=== PATIENT | female | born 1940 | race Caucasian/White ===

== ENCOUNTER 2017-04-07 06:18 | Day surgery (SDC) | payer MEDICARE, MEDICAID ==
[~2017-04-07] VITALS: Ht 162.6 cm; Wt 74.5 kg
[~2017-04-07 06:18] MED LIST: SODIUM CHLORIDE 0.9% 1,000 ML IV ONE
[2017-04-07] MEDS ORDERED: MONT10TA21 PO (06:42)
[2017-04-07] MEDS ORDERED: ALBU8HFA4 IH (06:42)
[2017-04-07] MEDS ORDERED: AMIT50TA3 PO (06:42)
[2017-04-07] MEDS ORDERED: METO50 PO (06:42)
[2017-04-07] MEDS ORDERED: FOLI1TAB15 PO (06:42)
[2017-04-07] MEDS ORDERED: FLUT16H NASAL (06:42)
[2017-04-07] MEDS ORDERED: DOCU250C21 PO (06:42)
[2017-04-07] MEDS ORDERED: ATOR40TA28 PO (06:42)
[2017-04-07] MEDS ORDERED: OMEP20 PO (06:42)
[2017-04-07] MEDS ORDERED: MECL-111 PO (06:42)
[2017-04-07] MEDS ORDERED: LISI-662 PO (06:42)
[2017-04-07] MEDS ORDERED: SODIUM CHLORIDE 0.9% 1,000 ML IV ONE (07:00)
[2017-04-07] MEDS ORDERED: FentaNYL CITRATE-PF 100 MCG/2 ML VIAL ONE (07:34)
[2017-04-07] MEDS ORDERED: MIDAZOLAM HCL 2 MG/2 ML VIAL ONE (07:34)
[2017-04-07] MEDS ORDERED: MethylPREDNISolone SOD SUCC 125 MG/2 ML VIAL IVP ONE (08:15)
[2017-04-07] MEDS ORDERED: MethylPREDNISolone SOD SUCC 125 MG/2 ML VIAL ONE (08:20)
[2017-04-07] MEDS ORDERED: ACETAMINOPHEN 500 MG TABLET ONE (08:53)
[2017-04-07] MEDS ORDERED: ACETAMINOPHEN 500 MG TABLET PO ONE (09:00)
[2017-04-07] MEDS ORDERED: BENZOCAINE 20% 50 MCG/SPRAY 57 GM TP ONE (11:06)
[2017-04-07] MEDS ORDERED: LIDOCAINE HCL 4% 50 ML SOLUTION TP ONE (11:06)
[2017-04-07] MEDS ORDERED: LIDOCAINE HCL 2% 30 ML JELLY TP ONE (11:06)
[2017-04-07] MEDS ORDERED: ALBUTEROL SULFATE 2.5 MG/0.5 ML NEB SOLUTION NEB ONE (11:06)
[2017-04-07] MEDS ORDERED: EPINEPHrine 1:1,000 [1 MG/ML] AMP IM ONE (11:06)
[2017-04-07] MEDS ORDERED: OXYGEN THERAPY IH SCH (20:00)
== END 2017-04-07 09:30 | disposition home or self-care (01) ==
LOC: SURGERY 06:18
PROVIDERS: ATTEND Internal Medicine Critical Care Medicine
DX: J38.4 Edema of larynx (principal); B37.0 Candidal stomatitis; Z91.013 Allergy to seafood; Z90.5 Acquired absence of kidney; Z98.890 Other specified postprocedural states; Z87.01 Personal history of pneumonia (recurrent); Z98.41 Cataract extraction status, right eye
CPT/HCPCS: 31623; 31624; 71010; 87015 ×2; 87070; 87101; 87147; 87205; 87220; 88108; 88312; J0171; J2250; J2930; J3010; J7030